=== PATIENT | male | born 1985 | race Caucasian/White ===

== ENCOUNTER → 2021-11-28 | Outpatient (CLI) | payer MEDICAID, SELFPAY ==
--- NOTE | 2021-11-28 16:59 | MRI_ITS ---
STUDY: MRI LEFT KNEE REASON FOR EXAM: Male, 36 years old. Knee pain TECHNIQUE: Standardized fat and water weighted pulse sequences were obtained in all 3 orthogonal planes. COMPARISON: None. FINDINGS: Normal medial meniscus. Normal hyaline cartilage of the medial femorotibial compartment. Normal medial femoral condyle and tibial plateau. Normal medial collateral ligamentous complex (MCL). Normal distal semimembranosus, gracilis and semitendinosus tendons. Normal lateral meniscus. Normal hyaline cartilage of the lateral femorotibial compartment. 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 Normal proximal tibiofibular articulation. Normal lateral collateral (fibular) ligament. Normal popliteus tendon. Normal biceps femoris tendon. Normal anterior cruciate ligament (ACL). Normal posterior cruciate ligament (PCL). Shallow trochlear groove with lateral subluxation of patella and edema superolateral Hoffa''s fat pad consistent with patellofemoral maltracking. There is diffuse, greater than 50% thickness articular cartilage loss of the patellofemoral compartment. Subchondral edema of the medial facet of patella. Normal medial and lateral patellar retinaculum. Normal quadriceps tendon. Normal patellar tendon. Normal Hoffa''s fat pad. There is no joint effusion. The soft tissues are unremarkable. Marrow pallor suggestive of osteopenia. MRI/Lower Ext Joint Only (Routine) IMPRESSION: 1. 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 2. Patellofemoral maltracking with moderate chondromalacia and subchondral edema of the medial facet of the patella. Electronically Signed: Venkat Sanchez MD at 21:16 EDT ,
== END | disposition home or self-care (01) ==
LOC: MRI 16:50
PROVIDERS: Visit Provider Physician Assistant
DX: M25.562 Pain in left knee (principal)
CPT/HCPCS: 73721

== ENCOUNTER 2024-08-09 09:55 | Inpatient (IN) | payer MEDICAID, SELFPAY ==
[2024-08-09] VITALS (8 sets, daily range): BP systolic 147–171; BP diastolic 97–123; PULSE 91–140; RESP 13–20; TEMP 36.1–36.9; O2SAT 94–99; BMI 21.4; BMI 20.5
[2024-08-09 10:29] LABS: Hematocrit 38.7 % (40-54); Hemoglobin 13.7 g/dL (13.0-16.5); Immature Granulocytes Count 0.040 X10^3/uL (0.0-0.0); Mean Corp Hgb Conc 35.4 g/dL (32-36); Mean Corpuscular Volume 91.1 fL (80-94); Mean Platelet Vol. 9.2 fl (6.2-12.0); NRBC Flagged by Analyzer 0 % (0-5); Platelet Count 141 K/mm3 (150-450); RBC Distribution Width CV 12.6 % (11.6-14.6); RBC Distribution Width SD 41.9 fl (35.1-43.9); Red Blood Count 4.25 M/mm3 (4.6-6.2); White Blood Count 9.2 K/mm3 (4.4-11.0)
[2024-08-09 11:09] LABS: AST(SGOT) 106 U/L (<=37); Alanine Aminotransfer ALT/SGPT 59 U/L (<=46); Albumin, Serum 4.4 g/dL (3.5-5.0); Alkaline Phosphatase 163 U/L (40-129); Anion Gap 16 (5-15); BUN 3 mg/dL (4-19); BUN/Creat Ratio 5.3 RATIO (10-20); Calcium,Total 9.1 mg/dL (7.6-11.0); Carbon Dioxide 24.2 mmol/L (21.0-32.0); Chloride 96 mmol/L (98-108); Estimated Creatinine Clearance 161.40 ml/min (50-250); Globulin 3.6 g/dL (2.2-4.2); Glucose 95 mg/dL (70-99); Potassium 3.8 mmol/L (3.3-5.1)
[2024-08-09 11:13] LABS: Alcohol, Blood (Medical)-Serum 359.0 mg/dL (<=10.0)
[2024-08-09 12:28] LABS: Barbiturate Urine NEGATIVE (< 200 ng/mL); Benzodiazepine Urine NEGATIVE (< 200 ng/mL); PCP Urine NEGATIVE (< 25 ng/mL); THC Urine NEGATIVE (< 50 ng/mL)
[2024-08-09] MEDS: Lactated Ringers 1,000 ML 125 ML IV (13:51)
[2024-08-09 15:11] LABS: Magnesium 2.0 mg/dL (1.5-2.2)
[2024-08-09] MEDS: hydrOXYzine PAM 25 MG Capsule 50 MG PO ×2 (17:43→22:28)
[2024-08-10 02:06] VITALS: BP 158/98; PULSE 102; RESP 18; TEMP 36.8; O2SAT 97
[2024-08-10 05:31] VITALS: BP 144/104; PULSE 81; RESP 18; TEMP 37.1; O2SAT 96
[2024-08-10] MEDS: hydrOXYzine PAM 25 MG Capsule 50 MG PO ×2 (05:33→09:48)
[2024-08-10 08:00] VITALS: BP 156/100; PULSE 98; RESP 16; TEMP 36.6; O2SAT 96
[2024-08-10] MEDS: Thiamine Hydrochloride 100 MG Tablet PO (08:09)
[2024-08-10 14:06] VITALS: BP 139/104; PULSE 112; RESP 16; TEMP 36.9; O2SAT 99
[2024-08-10 20:22] VITALS: BP 146/103; PULSE 98; RESP 16; TEMP 37.1; O2SAT 98
[2024-08-11 02:14] VITALS: BP 146/102; PULSE 90; RESP 16; TEMP 36.6; O2SAT 98
[2024-08-11] MEDS: hydrOXYzine PAM 25 MG Capsule 50 MG PO ×2 (02:24→21:43)
[2024-08-11 10:03] VITALS: BP 136/97; PULSE 101; RESP 18; TEMP 36.6; O2SAT 96
[2024-08-11] MEDS: Thiamine Hydrochloride 100 MG Tablet PO (10:06)
[2024-08-11 15:57] VITALS: BP 145/105; PULSE 87; RESP 18; TEMP 36.6; O2SAT 96
[2024-08-11 22:00] VITALS: BP 153/88; PULSE 68; RESP 16; TEMP 36.8; O2SAT 98
[2024-08-12 04:07] VITALS: BP 130/84; PULSE 74; RESP 16; TEMP 36.8; O2SAT 99
[2024-08-12 10:00] VITALS: BP 139/97; PULSE 94; RESP 16; TEMP 36.8; O2SAT 99
[2024-08-12] MEDS: Thiamine Hydrochloride 100 MG Tablet PO (10:53)
[2024-08-12] MEDS: hydrOXYzine PAM 25 MG Capsule 50 MG PO ×3 (10:56→22:10)
[2024-08-12 14:00] VITALS: BP 131/84; PULSE 74; RESP 16; TEMP 36.7; O2SAT 99
[2024-08-12 18:00] VITALS: BP 152/99; PULSE 89; RESP 16; TEMP 36.7; O2SAT 99
[2024-08-12 22:00] VITALS: BP 141/96; PULSE 84; RESP 16; TEMP 36.7; O2SAT 99
[2024-08-13 04:00] VITALS: BP 135/95; PULSE 85; RESP 18; TEMP 36.6; O2SAT 100
[2024-08-13 10:37] VITALS: BP 134/89; PULSE 98; RESP 16; TEMP 37.2; O2SAT 99
[2024-08-13] MEDS: hydrOXYzine PAM 25 MG Capsule 50 MG PO ×2 (10:56→21:56)
[2024-08-13] MEDS: Thiamine Hydrochloride 100 MG Tablet PO (10:56)
[2024-08-13 16:19] VITALS: BP 142/99; PULSE 88
[2024-08-13 21:49] VITALS: BP 153/99; PULSE 107; RESP 20; TEMP 36.9; O2SAT 99
[2024-08-14 05:48] VITALS: BP 146/99; PULSE 89; RESP 16; TEMP 37.1; O2SAT 97
[2024-08-14 08:40] VITALS: BP 139/95; PULSE 89; RESP 16; TEMP 36.8; O2SAT 100
[2024-08-14] MEDS: Thiamine Hydrochloride 100 MG Tablet PO (08:43)
[2024-08-14] MEDS: hydrOXYzine PAM 25 MG Capsule 50 MG PO (08:53)
[2024-08-14 14:15] VITALS: BP 135/89; PULSE 98; RESP 18; TEMP 37.2; O2SAT 100
== END 2024-08-14 15:21 | disposition home or self-care (01) | DRG 775 ==
LOC: ED 12:05 → MS3 15:34
PROVIDERS: Admitting Provider Internal Medicine; Emergency Provider Emergency Medicine
DX: F10.229 Alcohol dependence with intoxication, unspecified (principal); D69.6 Thrombocytopenia, unspecified; I10 Essential (primary) hypertension; F10.239 Alcohol dependence with withdrawal, unspecified; F17.210 Nicotine dependence, cigarettes, uncomplicated; Z59.01 Sheltered homelessness; R74.8 Abnormal levels of other serum enzymes
CPT/HCPCS: 80053; 80307; 82077; 83735; 84100; 85025; 99284; 99406